=== PATIENT | female | born 1965 | race Caucasian/White ===

== ENCOUNTER 2022-11-02 00:02 | Emergency (ER) | payer OTHER ==
[2022-11-02 01:10] LABS: #Basophils 0.1 10x3/uL (0.0-0.2); #Eosinphils 0.1 10x3/uL (0.0-0.5); #Monocytes 0.5 10x3/uL (0.0-1.1); #Neutrophils 4.4 10x3/uL (1.5-8.4); %Eosinophils 1.5 % (0.0-6.0); %Lymphocytes 36.5 % (18.0-47.0); %Monocytes 6.4 % (0.0-10.0); %Neutrophils 54.4 % (40.0-75.0); Hemoglobin 14.9 g/dL (12.0-15.5); Mean Corpuscular HGB CONC 33.9 g/dL (32.0-36.0); Mean Corpuscular Volume 91.5 fl (81.6-98.3); Platelet Count 307 10x3/uL (150-450); RBC Distribution Width 14.7 % (11.5-14.5); White Blood Cell (WBC) Count 8.1 10x3/uL (3.5-10.5)
[2022-11-02 01:29] LABS: ALT (SGPT) 84 U/L (8-55); AST (SGOT) 312 U/L (5-34); Albumin 4.5 g/dL (3.5-5.0); Alcohol 386 mg/dL (Less than 10); Alkaline Phosphatase 240 U/L (40-110); Anion Gap 19 mmol/L (10-20); BUN (Urea Nitrogen) 13 mg/dL (9.8-20.1); Bilirubin, Total 0.3 mg/dL (0.2-1.2); Calc. Creatinine Clearance 0 mL/min (70-130); Calcium 8.9 mg/dL (7.8-10.44); Carbon Dioxide 25 mmol/L (22-29); Chloride 104 mmol/L (98-107); Estimated GFR 90; Globulin 3.5 g/dL (2.4-3.5); Glucose 110 mg/dL (70-105); Potassium 4.1 mmol/L (3.5-5.1); Sodium 144 mmol/L (136-145)
== END 2022-11-02 09:18 | disposition home or self-care (01) ==
LOC: EDBD 00:02 → CSHERS 00:02
DX: F10.129 Alcohol abuse with intoxication, unspecified (principal); E03.9 Hypothyroidism, unspecified; K21.9 Gastro-esophageal reflux disease without esophagitis; Y90.8 Blood alcohol level of 240 mg/100 ml or more
CPT/HCPCS: 36415; 71045; 80053; 80307; 85025

== ENCOUNTER 2023-01-11 18:34 | Emergency (ER) | payer OTHER ==
[2023-01-11] MEDS ORDERED: Nicotine 14 MG PATCH TOP SCH (20:15)
== END 2023-01-11 22:50 ==
LOC: CSHERS 18:34
DX: F10.129 Alcohol abuse with intoxication, unspecified (principal); K21.9 Gastro-esophageal reflux disease without esophagitis; E03.9 Hypothyroidism, unspecified; Y90.8 Blood alcohol level of 240 mg/100 ml or more
CPT/HCPCS: 36415; 80307; 99284